=== PATIENT | female | born 1975 | race Two or more races ===

== ENCOUNTER 2019-06-25 11:48 | Emergency (ER) | payer BC ==
--- NOTE | 2019-06-25 12:00 | PDOC ---
Rapid Medical Evaluation Time Seen by Provider: 06/25/19 11:58 Medical Evaluation: 06/25/19 11:58 I have performed a brief in-person evaluation of this patient. The patient presents with a chief complaint of: itchy rash all over, taken claritin 2 hours ago, benadryl last night. traveled [place] two days ago Pertinent physical exam findings: generalized urticaria, no respiratory compromise, anxious I have ordered the following: nothing The patient will proceed to the ED for further evaluation. Discharge Disposition - Diagnosis Urticaria - Referrals - Patient Instructions - Post Discharge Activity
[2019-06-25 12:02] VITALS: BP 101/66; PULSE 76; TEMP 98.5; BMI 24.6
--- NOTE | 2019-06-25 12:29 | PDOC ---
History of Present Illness - General Chief Complaint: Rash Stated Complaint: RASH Time Seen by Provider: 06/25/19 11:58 History Source: Patient Exam Limitations: No Limitations - History of Present Illness Initial Comments: 06/25/19 12:46 HISTORY OF PRESENT ILLNESS: Is a 44-year-old woman who denies medical history presents emergency department for evaluation of pruritic rash to the chest which is now progressed to lower extremities. Patient reports taking Claritin yesterday afternoon and then Benadryl at night. Patient applied Benadryl cream and noted that the rash on her trunk has resolved now is presently just on her bilateral lower extremities. Patient denies any respiratory difficulties. Patient denies any change in soaps, shampoos, conditioner, lotions, perfumes, laundry detergents, food or medications. No recent travel or sick contacts. PAST MEDICAL HISTORY: Denies past medical history SURGICAL HISTORY: Denies ALLERGIES: No known drug allergies REVIEW OF SYSTEMS General/Constitutional: Denies fever or chills. Denies weakness, weight change. HEENT: Denies change in vision. Denies ear pain or discharge. Denies sore throat. Cardiovascular: Denies chest pain or shortness of breath. Respiratory: Denies cough, wheezing, or hemoptysis. Gastrointestinal: Denies nausea, vomiting, diarrhea or constipation. Denies rectal bleeding. Genitourinary: Denies dysuria, frequency, or change in urination. Musculoskeletal: Denies joint or muscle swelling or pain. Denies neck or back pain. Skin and breasts: See HPI Neurologic: Denies headache, vertigo, loss of consciousness, or loss of sensation. Psychiatric: Denies depression or anxiety. Endocrine: Denies increased thirst. Denies abnormal weight change. Hematologic/Lymphatic: Denies anemia, easy bleeding, or history of blood clots. Allergic/Immunologic: Denies hives or skin allergy. Denies latex allergy. PHYSICAL EXAM General Appearance: Well-appearing, appropriately dressed. No apparent distress , no intoxication. HEENT: EOMI, PERRLA, normal ENT inspection, normal voice, TMs normal, pharynx normal. No conjunctival pallor. No photophobia, scleral icterus. No drooling present. No pharyngeal edema noted. Neck: Supple. Trachea midline. No tenderness, rigidity, carotid bruit, stridor , lymphadenopathy, or thyromegaly. Respiratory/Chest: Lungs CTAB. No shortness of breath, chest tenderness, respiratory distress, accessory muscle use. No crackles, rales, rhonchi, stridor , wheezing, dullness Cardiovascular: RRR. S1, S2. No JVD, murmur, bradycardia, tachycardia. Integumentary: Multiform wheals present to bilateral lower extremities. Slight erythema present in between wheals. Skin is blanchable. Neurologic: vine pruner II-XII intact. Fully oriented, alert. Appropriate mood/affect. Motor strength 5/5. No appreciable EOM palsy, facial droop or sensory deficit. Past History - Past Medical History Allergies/Adverse Reactions: Allergies Allergy/AdvReac Type Severity Reaction Status Date / Time No Known Allergies Allergy Verified 06/25/19 12:01 Home Medications: Ambulatory Orders Mometasone Furoate [Elocon] 45 gm TP BID #1 tube 06/25/19 - Psycho Social/Smoking Cessation Hx Smoking History: Never smoked Have you smoked in the past 12 months: No Information on smoking cessation initiated: No Hx Alcohol Use: No Drug/Substance Use Hx: No *Physical Exam - Vital Signs Last Vital Signs Temp Pulse Resp BP Pulse Ox 98.5 F 76 18 101/66 100 06/25/19 11:58 06/25/19 11:58 06/25/19 11:58 06/25/19 11:58 06/25/19 11:58 Medical Decision Making - Medical Decision Making 06/25/19 12:46 A/P: 44-year-old woman with urticaria Unable to identify any inciting factors Patient instructed to continue taking [id number] antihistamines and I will add Elocon steroid cream to be applied twice daily. Patient has been given referral to dermatology for continued evaluation. Discharge home Discharge - Discharge Information Problems reviewed: Yes Clinical Impression/Diagnosis: Urticaria Condition: Stable Disposition: HOME - Admission No - Additional Discharge Information Prescriptions: Mometasone Furoate [Elocon] 45 gm TP BID #1 tube - Follow up/Referral Referrals: Mendy Huff MD [Staff Physician] - - Patient Discharge Instructions Additional Instructions: Rest, keep cool and dry- avoid strenuous activity or hot /humid environments Less hot showers, no abrasive soaps May use heavy creams like Eucerin or Cetaphil to keep skin moist May apply Aveeno, calamine lotion, [id number] hydrocortisone creams as needed for symptoms May use Benadryl at night for antihistamine, Zyrtec/ Monique or Claritin for daytime antihistamine use to help with itching May use Elocon cream on all areas except face Try to identify cause for rash and avoid exposures Followup with PMD in one week if no resolution Make appointment with mobile application engineer for evaluation when possible - Post Discharge Activity
== END 2019-06-25 12:30 | disposition home or self-care (01) ==
LOC: JERFT 11:48
DX: L50.9 Urticaria, unspecified (principal)
CPT/HCPCS: 99281-25